=== PATIENT | female | born 1990 | race African-American/Black ===

== ENCOUNTER 2017-02-24 18:09 | Emergency (ER) | payer SELFPAY ==
[2017-02-24] MEDS ORDERED: Dexamethasone 4 MG TAB ONE (18:32)
[2017-02-24] MEDS ORDERED: Dexamethasone 10 MG/ML VIAL ONE (18:36)
== END 2017-02-24 18:46 | disposition home or self-care (01) ==
LOC: ERS 18:09
DX: J34.89 Other specified disorders of nose and nasal sinuses (principal); Z79.899 Other long term (current) drug therapy
CPT/HCPCS: 99283; J1100; J8540

== ENCOUNTER 2017-03-12 12:20 | Emergency (ER) | payer SELFPAY ==
[2017-03-12 13:00] LABS: #Basophils 0.1 thou/uL (0.0-0.2); #Eosinphils 0.4 thou/uL (0.0-0.7); #Lymphocytes 2.2 thou/uL (1.20-3.40); #Monocytes 0.3 thou/uL (0.11-0.59); %Basophils 1.6 % (0.0-1.0); %Eosinophils 6.8 % (0.0-10.0); %Lymphocytes 35.8 % (21.0-51.0); %Monocytes 5.6 % (0.0-10.0); Hematocrit 40.9 % (36.0-47.0); Mean Platelet Volume 6.5 fL (7.4-10.4); Red Blood Cell (RBC) Count 4.83 mill/uL (4.20-5.40); White Blood Cell (WBC) Count 6.1 thou/uL (4.8-10.8)
[2017-03-12 13:21] LABS: ALT (SGPT) 12 U/L (8-55); AST (SGOT) 14 U/L (5-34); Alkaline Phosphatase 114 U/L (40-150); Anion Gap 14 mmol/L (10-20); BUN (Urea Nitrogen) 9 mg/dL (7.0-18.7); Bilirubin, Total 0.4 mg/dL (0.2-1.2); Calc. Creatinine Clearance 0 mL/min (70-130); Calcium 9.5 mg/dL (7.8-10.44); Carbon Dioxide 23 mmol/L (22-29); Chloride 103 mmol/L (98-107); Estimated GFR-MDRD Greater than 90; Globulin 3.9 g/dL (2.4-3.5)
== END 2017-03-12 15:16 | disposition left against medical advice (07) ==
LOC: ERS 12:20
DX: Z53.21 Procedure and treatment not carried out due to patient leaving prior to being seen by health care provider (principal)
CPT/HCPCS: 36415; 80053; 85025

== ENCOUNTER 2017-03-12 15:52 | Emergency (ER) | payer SELFPAY ==
[2017-03-12] MEDS ORDERED: Acetaminophen 500 MG TAB ONE (16:32)
[2017-03-12] MEDS ORDERED: Metoclopramide HCl 10 MG/2 ML VIAL ONE (17:00)
--- NOTE | 2017-03-12 17:04 | CT ---
CT BRAIN: Date: 03/12/17 HISTORY: Mass FINDINGS: No acute intracranial infarct or hemorrhage. No midline shift or mass effect. Ventricular size and extra-axial CSF spaces are normal. The mastoids are clear. Mild mucosal thickening of the e thmoids. IMPRESSION: No intracranial mass. MRI with contrast has greater sensitivity. POS: [facility]
== END 2017-03-12 18:21 | disposition home or self-care (01) ==
LOC: ERS 15:52
DX: R51 Headache (principal)
CPT/HCPCS: 70450; 96361; 96365; 96368; J2765; J3475; J7050

== ENCOUNTER 2017-06-18 00:27 | Emergency (ER) | payer OTHER, SELFPAY ==
[2017-06-18 01:03] LABS: #Basophils 0.1 thou/uL (0.0-0.2); #Eosinphils 0.4 thou/uL (0.0-0.7); #Lymphocytes 3.6 thou/uL (1.20-3.40); #Monocytes 0.5 thou/uL (0.11-0.59); #Neutrophils 6.8 thou/uL (1.40-6.50); %Basophils 0.5 % (0.0-1.0); %Eosinophils 3.5 % (0.0-10.0); %Lymphocytes 31.5 % (21.0-51.0); %Monocytes 4.5 % (0.0-10.0); Hemoglobin 11.7 g/dL (12.0-16.0); Mean Corpuscular HGB CONC 33.8 g/dL (32.0-36.0); Mean Corpuscular Volume 82.9 fl (81.0-99.0); Mean Platelet Volume 6.6 fL (7.4-10.4); Platelet Count 343 thou/uL (130-400); RBC Distribution Width 12.7 % (11.5-14.5); Red Blood Cell (RBC) Count 4.18 mill/uL (4.20-5.40); White Blood Cell (WBC) Count 11.3 thou/uL (4.8-10.8)
[2017-06-18 01:23] LABS: ALT (SGPT) 12 U/L (8-55); AST (SGOT) 10 U/L (5-34); Albumin 3.5 g/dL (3.5-5.0); Alkaline Phosphatase 108 U/L (40-150); Anion Gap 12 mmol/L (10-20); BUN (Urea Nitrogen) 7 mg/dL (7.0-18.7); Bilirubin, Total 0.2 mg/dL (0.2-1.2); Calc. Creatinine Clearance 0 mL/min (70-130); Calcium 9.6 mg/dL (7.8-10.44); Carbon Dioxide 23 mmol/L (22-29); Chloride 106 mmol/L (98-107); Estimated GFR-MDRD Greater than 90; Globulin 3.5 g/dL (2.4-3.5); Glucose 142 mg/dL (70-105); Potassium 3.8 mmol/L (3.5-5.1); Sodium 137 mmol/L (136-145)
[2017-06-18 01:26] LABS: CKMB 0.4 ng/mL (0-6.6); Troponin I Less than 0.010 ng/mL (< 0.028)
[2017-06-18] MEDS ORDERED: Mag-Al 1200 mg/1200 mg/30 ML UDCUP ONE (01:40)
[2017-06-18] MEDS ORDERED: Lidocaine Viscous Sol 2% 15 ml UD Cup ONE (01:40)
== END 2017-06-18 02:38 | disposition home or self-care (01) ==
LOC: ERS 00:27
DX: O99.89 Other specified diseases and conditions complicating pregnancy, childbirth and the puerperium (principal); R07.89 Other chest pain; Z3A.17 17 weeks gestation of pregnancy
CPT/HCPCS: 36415; 80053; 82553; 84484; 85025; 85379; 93005

== ENCOUNTER 2017-07-05 23:26 | Day surgery (SDC) | payer OTHER ==
[2017-07-06 00:22] VITALS: BP 114/69; TEMP 98.9; BMI 33.5
--- NOTE | 2017-07-06 07:39 | PRG ---
DATE OF SERVICE: 07/06/2017 OB ED NOTE TIME OF SERVICE: 0045 hours. HISTORY OF PRESENT ILLNESS: Patient is a 27-year-old 4, para 3 at 19 weeks' gestation, who s ees Dr. Sebastian Guevara at [facility]. She reports lower abdominal pressure and pain extending i nto the vagina since approximately 4 o'clock this evening. She denies vaginal discharge. She denies bleeding. She denies contractions. She denies rupture of membranes. OB AND TAR CHASER HISTORY: Patient reports term pregnancies x3 with vaginal deliveries, uncomplicated. Ant epartum record not available. No history of labor, cervical incontinence, or cervical surger y. PAST MEDICAL HISTORY: None. PAST SURGICAL HISTORY: None. ALLERGIES: PEACHES and CRAB LEGS. MEDICATIONS: vitamins. SOCIAL HISTORY: Denies tobacco, alcohol, or IV drug abuse. FAMILY HISTORY AND REVIEW OF SYSTEMS: Noncontributory. PHYSICAL EXAMINATION: GENERAL: Black female in no acute distress. VITAL SIGNS: Blood pressure 116/74, afebrile, respirations 18, pulse 85. ABDOMEN: Soft and nontender. No rebound or guarding, no CVA tenderness. PELVIC: Vulva without lesions. Vagina, slight leukorrhea of . No dominant discharge noted . Cervix is visually closed on speculum exam. Bimanual exam reveals a posterior cervix with a rathe r low-riding uterus, but a cervix that is closed, long, and high. EXTREMITIES: Without clubbing, cyanosis, or edema. IMPRESSION: Discomforts of . Pelvic pressure likely secondary to multi-gravid state and fa irly recent interval of . PLAN: Patient reassured, instructed to come back if pressure increases, vaginal discharge increases, bleeding occurs, or ruptured membranes occurs. Otherwise, she is to keep her scheduled followup wit janine Guevara in 5 days.
== END 2017-07-06 00:59 | disposition home or self-care (01) ==
LOC: L&D/OP 23:26
PROVIDERS: ATTEND Family Medicine
DX: O99.89 Other specified diseases and conditions complicating pregnancy, childbirth and the puerperium (principal); R10.30 Lower abdominal pain, unspecified; R10.2 Pelvic and perineal pain; Z79.899 Other long term (current) drug therapy; Z91.018 Allergy to other foods; Z3A.19 19 weeks gestation of pregnancy

== ENCOUNTER 2017-09-18 23:37 | Day surgery (SDC) | payer OTHER ==
[2017-09-19 00:30] VITALS: TEMP 98.3; BMI 33.6
[2017-09-19] MEDS ORDERED: Promethazine HCl 25 MG/ML VIAL IM/IV PRN ×2 (00:48→00:55)
--- NOTE | 2017-09-19 00:50 | PDOC.LDHP ---
Labor and Delivery H&P HPI: Patient of Dr Guevara Location: L&D CC: irregular contractions since Saturday Patient is a 27 yo at 30 weeks (no HX PTL) with irregular contractions for [address] guevara who recommended oral hydration. No LOF, no VB, no PIS sxs, no trauma, no sex since last Saturday. ROS positive for "allergies" and nasal congestion. Review of Systems: Complete ROS completed and as per HPI Current gestational age (weeks): 30 Dating criteria: last menstrual period Grav: 4 Para: 3 (Term deliveries) Current complications: none Abnormal US findings: No Current medications: pre- vitamins Previous surgical history: none Allergies/Adverse Reactions: Allergies Allergy/AdvReac Type Severity Reaction Status Date / Time No Known Drug Allergies Allergy Verified 07/06/17 00:12 Social history: none - Physical Exam Vital signs reviewed and normal: yes (113/67 afebrile 92 O2 sat 96) General: NAD Heart: RRR Lungs: CTAB Abdomen: gravid FHT: category 1 [place] contractions every: irregular Q 3-5 - Assessment Threatened labor - Plan -: Observation in L&D for now. We will collect FFN, then check her cervix IVF hydrate and sedate prn Await FFN eval Cervical length is needed to complete eval
[2017-09-19] MEDS ORDERED: Lactated Ringer's 1,000 ML IV SCH (01:00)
[2017-09-19 01:40] LABS: FFN Internal QC Analyzer PASS (PASS); FFN Internal QC Cassette PASS (PASS); Fetal Fibronectin Negative (Negative)
--- NOTE | 2017-09-19 01:52 | PDOC.EVN ---
Event Note - Event Note Event Note: Follow up: Cervix closed and FFN negative Vitals stable Cat 1 FHTs OK for outpatient follow up after this IVF
== END 2017-09-19 02:12 | disposition home or self-care (01) ==
LOC: L&D/OP 23:37
PROVIDERS: ATTEND Family Medicine
DX: O47.03 False labor before 37 completed weeks of gestation, third trimester (principal); Z3A.30 30 weeks gestation of pregnancy; Z79.899 Other long term (current) drug therapy
CPT/HCPCS: 59025; 82731; 96360; 96375; 99283; J0595; J2550

== ENCOUNTER 2019-01-16 08:11 | Emergency (ER) | payer OTHER ==
[2019-01-16 08:32] LABS: #Basophils 0.1 thou/uL (0.0-0.2); #Eosinphils 0.3 thou/uL (0.0-0.7); #Lymphocytes 3.7 thou/uL (1.20-3.40); #Monocytes 0.3 thou/uL (0.11-0.59); %Basophils 0.8 % (0.0-1.0); %Eosinophils 4.1 % (0.0-10.0); %Lymphocytes 44.2 % (21.0-51.0); %Monocytes 3.2 % (0.0-10.0); %Neutrophils 47.7 % (42.0-75.0); Hemoglobin 12.8 g/dL (12.0-16.0); Mean Corpuscular HGB CONC 32.6 g/dL (32.0-36.0); Mean Corpuscular Hemoglobin 26.5 pg (27.0-31.0); Mean Corpuscular Volume 81.4 fL (78.0-98.0); Mean Platelet Volume 6.8 fL (7.4-10.4); Platelet Count 435 thou/uL (130-400); RBC Distribution Width 11.8 % (11.5-14.5); Red Blood Cell (RBC) Count 4.82 mill/uL (4.20-5.40); White Blood Cell (WBC) Count 8.3 thou/uL (4.8-10.8)
[2019-01-16 08:42] LABS: Bilirubin Negative (Negative); Blood, Urine 1+ (Negative); Glucose, Urine (Dipstick) Normal (Negative); Leukocyte 250 Leu/uL (Negative); Nitrite Negative (Negative); Pregnancy Test - Urine (BHCG) Negative (Negative); Pregu Control Background? CLEAR/WHITE (CLR/WHITE); Pregu Control Bar Appear? YES (CONTROL BAR); Protein, Urine (Dipstick) 30 mg/dL (Neg-Trace); Specific Gravity 1.029 (1.002-1.036); Urobilinogen Normal mg/dL (Less than 2)
[2019-01-16 08:47] LABS: Bacteria/HPF 1+ HPF (None Seen); Clarity Cloudy (Clear); Unclassified Crystals Rare HPF (None Seen)
[2019-01-16 08:49] LABS: RBC/HPF 0-3 HPF (0-3); WBC/HPF 21-50 HPF (0-3)
[2019-01-16 08:53] LABS: ALT (SGPT) 12 U/L (8-55); AST (SGOT) 11 U/L (5-34); Alkaline Phosphatase 110 U/L (40-150); Anion Gap 10 mmol/L (10-20); BUN (Urea Nitrogen) 9 mg/dL (7.0-18.7); Bilirubin, Total 0.4 mg/dL (0.2-1.2); Calc. Creatinine Clearance 0 mL/min (70-130); Calcium 9.2 mg/dL (7.8-10.44); Carbon Dioxide 28 mmol/L (22-29); Chloride 104 mmol/L (98-107); Estimated GFR-MDRD Greater than 90; Globulin 3.5 g/dL (2.4-3.5); Glucose 95 mg/dL (70-105); Lipase 6 U/L (8-78); Potassium 3.7 mmol/L (3.5-5.1); Protein, Total 7.5 g/dL (6.0-8.3); Sodium 138 mmol/L (136-145)
[2019-01-16] MEDS ORDERED: Ketorolac Tromethamine 30 MG/ML VIAL ONE (09:56)
== END 2019-01-16 10:09 | disposition home or self-care (01) ==
LOC: ERS 08:11
DX: N39.0 Urinary tract infection, site not specified (principal); F41.9 Anxiety disorder, unspecified
CPT/HCPCS: 36415; 80053; 81003; 81015; 81025; 83690; 85025; 96372; 99284; J1885

== ENCOUNTER 2019-07-19 22:05 | Emergency (ER) | payer MEDICAID, OTHER ==
[2019-07-19] MEDS ORDERED: Acetaminophen 500 MG TAB ONE (23:11)
--- NOTE | 2019-07-20 08:08 | ULT ---
TRANSABDOMINAL AND TRANSVAGINAL PELVIC ULTRASOUND: INDICATION: Cramping at 78-week . TECHNIQUE: Dubois scale, color Doppler, and spectral Doppler images were obtained of the pelvis via transabdominal and transvaginal approach. FINDINGS: There is an intrauterine gestational sac identified with a mean sac diameter of 2.41 cm giving an est imated gestational age of 7 weeks and 3 days. No internal yolk sac or pole is identified. The gestational sac has an oblong irregular appearance. The right ovary measures 3.2 x 1.6 x 4 cm. The left ovary measures 4.6 x 2.2 x 1.4 cm. There is a s imple follicular cyst within the left ovary. The uterus measures 10.6 x 6.2 x 7.4 cm. There is a sc ar present within the anterior uterus related to . Mild free fluid in the pelvis. IMPRESSION: 1. Intrauterine gestational sac with irregular sac margin is suspicious for anembryonic . No internal pole or yolk sac is identified. Gestational age based on mean sac diameter is 7 we eks and 3 days with an estimated due date of 03/03/2020. Continued clinical and sonographic followup is recommended. 2. Simple left ovarian cyst. 3. scar of the uterus. 4. Mild free fluid in the pelvis. POS: [facility]
== END 2019-07-20 00:38 | disposition home or self-care (01) ==
LOC: ERS 22:05
DX: O02.0 Blighted ovum and nonhydatidiform mole (principal); F41.9 Anxiety disorder, unspecified; O99.341 Other mental disorders complicating pregnancy, first trimester; Z79.899 Other long term (current) drug therapy; Z3A.01 Less than 8 weeks gestation of pregnancy
CPT/HCPCS: 36415; 76856; 84702

== ENCOUNTER 2019-08-06 15:41 | Outpatient (CLI) | payer OTHER ==
--- NOTE | 2019-08-06 16:43 | ULT ---
Obstetric sonogram transabdominal and transvaginal imaging with duplex evaluation HISTORY: Absent heart tones. FINDINGS: Urinary bladder is unremarkable. Gestational sac within the endometrial cavity with irregul ar linear internal echogenic structure. No heart tones visualized. Measured as a pole, it correlates with 7 weeks 3 days gestational age. No free fluid is evident within the pelvis. Each ovary contains follicles and demonstrates good color and spectral Doppler flow. IMPRESSION : Evidence of nonviable gestation, as no heart tones are visible and there has been no growth sin ce the sonogram from 07/19/2019.
== END 2019-08-06 15:42 | disposition home or self-care (01) ==
LOC: SCSULT 15:41
PROVIDERS: ATTEND Nurse Practitioner
DX: O09.91 Supervision of high risk pregnancy, unspecified, first trimester (principal); O02.0 Blighted ovum and nonhydatidiform mole; Z3A.01 Less than 8 weeks gestation of pregnancy
CPT/HCPCS: 76856

== ENCOUNTER 2019-08-11 15:12 | Emergency (ER) | payer OTHER ==
[~2019-08-11 15:12] MED LIST: Iopamidol-370 76% 500 ML 1 ML ONE
[2019-08-11 16:32] LABS: #Basophils 0.1 thou/uL (0.0-0.2); #Eosinphils 0.4 thou/uL (0.0-0.7); #Lymphocytes 3.1 thou/uL (1.20-3.40); #Monocytes 0.3 thou/uL (0.11-0.59); #Neutrophils 3.1 thou/uL (1.40-6.50); %Basophils 1.2 % (0.0-1.0); %Eosinophils 5.6 % (0.0-10.0); %Lymphocytes 44.8 % (21.0-51.0); %Monocytes 3.6 % (0.0-10.0); %Neutrophils 44.7 % (42.0-75.0); Hemoglobin 11.2 g/dL (12.0-16.0); Mean Corpuscular HGB CONC 32.8 g/dL (32.0-36.0); Mean Corpuscular Hemoglobin 27.2 pg (27.0-31.0); Mean Corpuscular Volume 83.1 fL (78.0-98.0); Mean Platelet Volume 8.1 fL (7.4-10.4); Platelet Count 346 thou/uL (130-400); RBC Distribution Width 11.9 % (11.5-14.5); Red Blood Cell (RBC) Count 4.11 mill/uL (4.20-5.40); White Blood Cell (WBC) Count 6.9 thou/uL (4.8-10.8)
[2019-08-11 16:43] LABS: ALT (SGPT) 14 U/L (8-55); AST (SGOT) 15 U/L (5-34); Albumin 3.9 g/dL (3.5-5.0); Alkaline Phosphatase 98 U/L (40-110); Anion Gap 13 mmol/L (10-20); BUN (Urea Nitrogen) 7 mg/dL (7.0-18.7); Bilirubin, Total 0.2 mg/dL (0.2-1.2); Calc. Creatinine Clearance 0 mL/min (70-130); Calcium 9.1 mg/dL (7.8-10.44); Carbon Dioxide 23 mmol/L (22-29); Chloride 106 mmol/L (98-107); Estimated GFR-MDRD Greater than 90; Globulin 3.2 g/dL (2.4-3.5); Glucose 83 mg/dL (70-105); Lipase 12 U/L (8-78); Potassium 4.4 mmol/L (3.5-5.1); Protein, Total 7.1 g/dL (6.0-8.3); Sodium 138 mmol/L (136-145)
--- NOTE | 2019-08-11 17:50 | CT ---
CT OF THE ABDOMEN AND PELVIS WITH CONTRAST: 08/11/19 COMPARISON: None. HISTORY: Lower abdominal pain that began this morning. History of section in November. TECHNIQUE: Multiple contiguous axial images were obtained in a CT of the abdomen and pelvis with contrast. Sagit milo and coronal reformats were performed. FINDINGS: The liver, gallbladder, kidneys, adrenal glands, spleen, and pancreas are unremarkable. No free air, free fluid, or stranding changes are seen in the abdomen or pelvis. The reproductive organs are unremarkable. The large and small bowel are unremarkable. The appendix is normal. No abdominal or pelvic lymphadenopathy is seen. The osseous structures, visualized inferior thorax, and abdominal wall soft tissues are unremarkable. IMPRESSION: No evidence of acute intra-abdominal/pelvic abnormality. POS: [facility]
== END 2019-08-11 18:40 | disposition home or self-care (01) ==
LOC: ERS 15:12
DX: O99.611 Diseases of the digestive system complicating pregnancy, first trimester (principal); K59.00 Constipation, unspecified; O99.341 Other mental disorders complicating pregnancy, first trimester; F41.9 Anxiety disorder, unspecified; Z79.899 Other long term (current) drug therapy
CPT/HCPCS: 74177; 80053; 83690; 84702; 85025; 96360; 96361; Q9967

== ENCOUNTER 2019-11-13 22:42 | Emergency (ER) | payer OTHER ==
[2019-11-14] MEDS ORDERED: diphenhydrAMINE 50 MG/ML VIAL ONE (00:31)
[2019-11-14] MEDS ORDERED: Promethazine HCl 25 MG/ML VIAL ONE (00:31)
[2019-11-14] MEDS ORDERED: Ketorolac Tromethamine 30 MG/ML VIAL ONE (01:52)
== END 2019-11-14 02:34 | disposition home or self-care (01) ==
LOC: ERS 22:42
DX: R51 Headache (principal); R42 Dizziness and giddiness; F41.9 Anxiety disorder, unspecified; Z79.899 Other long term (current) drug therapy
CPT/HCPCS: 96365; 96375; J1200; J1885; J2550

== ENCOUNTER 2020-01-07 22:05 | Emergency (ER) | payer OTHER ==
[2020-01-07 22:44] LABS: #Basophils 0.1 thou/uL (0.0-0.2); #Eosinphils 0.2 thou/uL (0.0-0.7); #Lymphocytes 3.3 thou/uL (1.20-3.40); #Monocytes 0.3 thou/uL (0.11-0.59); #Neutrophils 6.3 thou/uL (1.40-6.50); %Basophils 0.6 % (0.0-1.0); %Lymphocytes 32.7 % (21.0-51.0); %Monocytes 3.1 % (0.0-10.0); %Neutrophils 61.6 % (42.0-75.0); Hemoglobin 11.6 g/dL (12.0-16.0); Mean Corpuscular HGB CONC 32.5 g/dL (32.0-36.0); Mean Corpuscular Hemoglobin 25.8 pg (27.0-31.0); Mean Corpuscular Volume 79.4 fL (78.0-98.0); Platelet Count 446 thou/uL (130-400); RBC Distribution Width 13.7 % (11.5-14.5); Red Blood Cell (RBC) Count 4.52 mill/uL (4.20-5.40); White Blood Cell (WBC) Count 10.2 thou/uL (4.8-10.8)
[2020-01-07 22:50] LABS: Bacteria/HPF 3+ HPF (None Seen); Bilirubin Negative (Negative); Blood, Urine Trace (Negative); Clarity Clear (Clear); Glucose, Urine (Dipstick) Normal (Negative); Ketone, Urine Negative (Negative); Leukocyte 25 Leu/uL (Negative); Nitrite Negative (Negative); Protein, Urine (Dipstick) Negative (Neg-Trace); RBC/HPF 0-3 HPF (0-3); Specific Gravity, Urine 1.014 (1.002-1.036); Squamous Epithelial 0-3 HPF (0-3); Urobilinogen Normal mg/dL (Less than 2); WBC/HPF 0-3 HPF (0-3)
[2020-01-07 23:05] LABS: ALT (SGPT) 18 U/L (8-55); AST (SGOT) 14 U/L (5-34); Albumin 4.1 g/dL (3.5-5.0); Alkaline Phosphatase 113 U/L (40-110); Anion Gap 9 mmol/L (10-20); BUN (Urea Nitrogen) 11 mg/dL (7.0-18.7); Bilirubin, Total 0.2 mg/dL (0.2-1.2); Calc. Creatinine Clearance 0 mL/min (70-130); Calcium 9.3 mg/dL (7.8-10.44); Carbon Dioxide 28 mmol/L (22-29); Chloride 103 mmol/L (98-107); Estimated GFR-MDRD Greater than 90; Globulin 3.6 g/dL (2.4-3.5); Glucose 87 mg/dL (70-105); Potassium 3.5 mmol/L (3.5-5.1); Protein, Total 7.7 g/dL (6.0-8.3); Sodium 136 mmol/L (136-145)
--- NOTE | 2020-01-07 23:44 | ULT ---
EXAM: Pelvic ultrasound HISTORY: Pelvic pain in a female COMPARISON: None TECHNIQUE: Multiple grayscale and color Doppler images were obtained in a pelvic ultrasound. Spectral analysis of the Doppler waveforms of the ovaries were performed. FINDINGS: UTERUS: There is an intrauterine gestational sac. This contains a yolk sac. No pole is seen at this time. Mean sac diameter is 0.73 cm which estimates gestational age at 5 weeks 4 days. No evidence of subchorionic hemorrhage. No free fluid is seen in the pelvis. RIGHT OVARY: Normal flow without focal mass. A corpus luteum cyst is seen in the right ovary. LEFT OVARY: Normal flow without focal mass. IMPRESSION: Early intrauterine .
== END 2020-01-07 23:20 | disposition home or self-care (01) ==
LOC: ERS 22:05
DX: O23.41 Unspecified infection of urinary tract in pregnancy, first trimester (principal); B96.89 Other specified bacterial agents as the cause of diseases classified elsewhere; O99.341 Other mental disorders complicating pregnancy, first trimester; F41.9 Anxiety disorder, unspecified; Z3A.01 Less than 8 weeks gestation of pregnancy
CPT/HCPCS: 36415; 76856; 80053; 81003; 81015; 84702; 85025; 86900; 86901

== ENCOUNTER 2020-02-09 20:00 | Emergency (ER) | payer OTHER ==
[2020-02-09] MEDS ORDERED: Ondansetron PF 4 MG/2 ML Vial ONE (21:11)
[2020-02-09 21:15] LABS: #Basophils 0.1 thou/uL (0.0-0.2); #Eosinphils 0.3 thou/uL (0.0-0.7); #Lymphocytes 2.8 thou/uL (1.20-3.40); #Monocytes 0.4 thou/uL (0.11-0.59); %Basophils 0.8 % (0.0-1.0); %Eosinophils 2.3 % (0.0-10.0); %Monocytes 3.7 % (0.0-10.0); %Neutrophils 69.3 % (42.0-75.0); Hemoglobin 11.7 g/dL (12.0-16.0); Mean Corpuscular HGB CONC 33.3 g/dL (32.0-36.0); Mean Corpuscular Hemoglobin 26.5 pg (27.0-31.0); Mean Corpuscular Volume 79.8 fL (78.0-98.0); Mean Platelet Volume 7.4 fL (7.4-10.4); Platelet Count 384 thou/uL (130-400); RBC Distribution Width 14.1 % (11.5-14.5); Red Blood Cell (RBC) Count 4.39 mill/uL (4.20-5.40); White Blood Cell (WBC) Count 11.6 thou/uL (4.8-10.8)
[2020-02-09 21:16] LABS: Bilirubin Negative (Negative); Blood, Urine 1+ (Negative); Clarity Clear (Clear); Glucose, Urine (Dipstick) 70 mg/dL (Negative); Ketone, Urine 40 mg/dL (Negative); Leukocyte Negative Leu/uL (Negative); Nitrite Negative (Negative); Protein, Urine (Dipstick) 20 mg/dL (Neg-Trace); RBC/HPF 0-3 HPF (0-3); Specific Gravity, Urine 1.028 (1.002-1.036); Squamous Epithelial 0-3 HPF (0-3); WBC/HPF 0-3 HPF (0-3)
[2020-02-09 21:17] LABS: Bacteria/HPF 1+ HPF (None Seen)
[2020-02-09 21:45] LABS: ALT (SGPT) 11 U/L (8-55); AST (SGOT) 12 U/L (5-34); Albumin 3.8 g/dL (3.5-5.0); Alkaline Phosphatase 101 U/L (40-110); Anion Gap 12 mmol/L (10-20); BUN (Urea Nitrogen) 7 mg/dL (7.0-18.7); Bilirubin, Total 0.2 mg/dL (0.2-1.2); Calc. Creatinine Clearance 0 mL/min (70-130); Calcium 8.9 mg/dL (7.8-10.44); Carbon Dioxide 22 mmol/L (22-29); Chloride 105 mmol/L (98-107); Estimated GFR-MDRD Greater than 90; Globulin 3.6 g/dL (2.4-3.5); Glucose 115 mg/dL (70-105); Lipase 11 U/L (8-78); Potassium 3.6 mmol/L (3.5-5.1); Protein, Total 7.4 g/dL (6.0-8.3); Sodium 135 mmol/L (136-145)
== END 2020-02-09 22:10 | disposition home or self-care (01) ==
LOC: ERS 20:00
DX: O21.0 Mild hyperemesis gravidarum (principal); O99.89 Other specified diseases and conditions complicating pregnancy, childbirth and the puerperium; R10.30 Lower abdominal pain, unspecified; O99.341 Other mental disorders complicating pregnancy, first trimester; F41.9 Anxiety disorder, unspecified; Z3A.09 9 weeks gestation of pregnancy
CPT/HCPCS: 80053; 81003; 81015; 83690; 85025; 87086; 96361; 96374; J2405

== ENCOUNTER 2020-03-11 16:52 | Emergency (ER) | payer OTHER ==
[2020-03-11 17:45] LABS: Bacteria/HPF 2+ HPF (None Seen); Bilirubin Negative (Negative); Blood, Urine 2+ (Negative); Clarity Clear (Clear); Glucose, Urine (Dipstick) 100 mg/dL (Negative); Ketone, Urine Negative (Negative); Leukocyte Negative Leu/uL (Negative); Mucous/LPF 1+ LPF (<2+); Nitrite Negative (Negative); Protein, Urine (Dipstick) 30 mg/dL (Neg-Trace); RBC/HPF 0-3 HPF (0-3); Specific Gravity, Urine 1.025 (1.002-1.036); Urobilinogen Normal mg/dL (Less than 2)
[2020-03-11 17:50] LABS: #Basophils 0.1 thou/uL (0.0-0.2); #Eosinphils 0.4 thou/uL (0.0-0.7); #Lymphocytes 2.5 thou/uL (1.20-3.40); #Monocytes 0.5 thou/uL (0.11-0.59); #Neutrophils 9.1 thou/uL (1.40-6.50); %Basophils 0.6 % (0.0-1.0); %Eosinophils 2.9 % (0.0-10.0); %Lymphocytes 20.1 % (21.0-51.0); %Monocytes 3.7 % (0.0-10.0); %Neutrophils 72.7 % (42.0-75.0); Mean Corpuscular HGB CONC 34.7 g/dL (32.0-36.0); Mean Corpuscular Hemoglobin 27.9 pg (27.0-31.0); Mean Corpuscular Volume 80.4 fL (78.0-98.0); Mean Platelet Volume 6.8 fL (7.4-10.4); Platelet Count 350 thou/uL (130-400); RBC Distribution Width 13.9 % (11.5-14.5); White Blood Cell (WBC) Count 12.5 thou/uL (4.8-10.8)
[2020-03-11 17:59] LABS: Pregnancy Test - Urine (BHCG) POSITIVE (Negative); Pregu Control Background? CLEAR/WHITE (CLR/WHITE); Pregu Control Bar Appear? YES (CONTROL BAR); Specific Gravity 1.025 (1.002-1.036)
[2020-03-11 18:11] LABS: ALT (SGPT) 8 U/L (8-55); AST (SGOT) 9 U/L (5-34); Albumin 3.5 g/dL (3.5-5.0); Alkaline Phosphatase 88 U/L (40-110); Anion Gap 12 mmol/L (10-20); BUN (Urea Nitrogen) 8 mg/dL (7.0-18.7); Bilirubin, Total Less than 0.2 mg/dL (0.2-1.2); Calc. Creatinine Clearance 0 mL/min (70-130); Calcium 9.2 mg/dL (7.8-10.44); Carbon Dioxide 20 mmol/L (22-29); Chloride 105 mmol/L (98-107); Estimated GFR-MDRD Greater than 90; Globulin 3.6 g/dL (2.4-3.5); Glucose 116 mg/dL (70-105); Potassium 3.7 mmol/L (3.5-5.1); Protein, Total 7.1 g/dL (6.0-8.3); Sodium 133 mmol/L (136-145)
== END 2020-03-11 18:23 | disposition home or self-care (01) ==
LOC: ERS 16:52
DX: O20.0 Threatened abortion (principal); O23.42 Unspecified infection of urinary tract in pregnancy, second trimester; O99.342 Other mental disorders complicating pregnancy, second trimester; F41.9 Anxiety disorder, unspecified; Z3A.14 14 weeks gestation of pregnancy
CPT/HCPCS: 36415; 80053; 81003; 81015; 81025; 84702; 85025; 86900; 86901

== ENCOUNTER 2020-04-17 14:59 | Emergency (ER) | payer OTHER ==
[2020-04-17 17:25] LABS: Bacteria/HPF 3+ HPF (None Seen); Bilirubin Negative (Negative); Blood, Urine Negative (Negative); Clarity Clear (Clear); Glucose, Urine (Dipstick) 200 mg/dL (Negative); Ketone, Urine 10 mg/dL (Negative); Leukocyte 25 Leu/uL (Negative); Nitrite Negative (Negative); Protein, Urine (Dipstick) 30 mg/dL (Neg-Trace); RBC/HPF 0-3 HPF (0-3); Specific Gravity, Urine 1.025 (1.002-1.036); Squamous Epithelial 0-3 HPF (0-3); Urobilinogen Normal mg/dL (Less than 2); WBC/HPF 0-3 HPF (0-3); pH, Urine 5.5 (5.0-9.0)
--- NOTE | 2020-04-17 17:33 | ULT ---
Exam: OB ultrasound Limited: HISTORY: Contractions at approximately 19 weeks FINDINGS: The cervix measures approximately 3.5 cm and is closed. heart rate 158 bpm. Right-sided placenta without overt placenta previa. Variable presentation including vertex. Adequate amniotic fluid. Very limited anatomy. biometry: BPD 4.9 cm--20 weeks 6 days Head circumference 17.2 cm--19 weeks 6 days Abdominal circumference 14.6 cm--19 weeks 6 days Femur length 3.2 cm--19 weeks 6 days. IMPRESSION: Single viable intrauterine fetus at 19 weeks 6 days EDC 09/05/2020 Estimated weight 320 g. IMPRESSION: No significant acute process. Cervix measures 3.5 cm and is closed.
== END 2020-04-17 18:03 | disposition home or self-care (01) ==
LOC: ERS 14:59
DX: O23.42 Unspecified infection of urinary tract in pregnancy, second trimester (principal); Z3A.19 19 weeks gestation of pregnancy
CPT/HCPCS: 76815; 81003; 81015; 87086

== ENCOUNTER 2020-04-28 08:29 | Outpatient (CLI) | payer OTHER ==
--- NOTE | 2020-04-28 09:48 | ULT ---
OB ULTRASOUND: HISTORY: anatomy. FINDINGS: A single live intrauterine gestation is seen with measurements corresponding to an estimated gestatio nal age of 22 weeks 2 days and NANI at 08/30/2020. The estimated weight measures 490 gm or 1 rangel nd and 1 ounce (96% by Hadlock criteria). Biometry: BPD 5.25 cm, 22 weeks 0 days HC 19.58 cm, 21 weeks 6 days AC 17.58 cm, 22 weeks 4 days FL 3.80 cm, 22 weeks 2 days heart rate measures 153 b.p.m. GEORGE measures 16.9 cm. Placenta is posteriorly located without evidence of placenta previa. Cervical length measures 4.1 cm. A 3-vessel cord, cord insertion, kidneys, bladder, stomach, 4-chamber heart, lateral ventricles , cerebellum, spine, lips/nose, upper and lower extremities are visualized. No definite anomal ies are seen. IMPRESSION: Single live intrauterine of 22 weeks 2 days estimated gestational age and estimated date of delivery at 08/30/2020. POS: [facility]
== END 2020-04-28 08:30 | disposition home or self-care (01) ==
LOC: BICULT 08:29
PROVIDERS: ATTEND Family Medicine
DX: O09.892 Supervision of other high risk pregnancies, second trimester (principal); Z3A.22 22 weeks gestation of pregnancy
CPT/HCPCS: 76805

== ENCOUNTER 2020-06-13 06:11 | Day surgery (SDC) | payer OTHER ==
[2020-06-13 07:18] VITALS: BMI 37.0
[2020-06-13] MEDS ORDERED: hydrALAZINE 20 MG/ML VIAL SLOW IVP PRN (07:56)
[2020-06-13 08:25] LABS: Bacteria/HPF 2+ HPF (None Seen); Bilirubin Negative (Negative); Blood, Urine Trace (Negative); Calcium Oxalate Crystals 1+ HPF (None Seen); Clarity Clear (Clear); Glucose, Urine (Dipstick) 70 mg/dL (Negative); Ketone, Urine 40 mg/dL (Negative); Leukocyte Negative Leu/uL (Negative); Nitrite Negative (Negative); Protein, Urine (Dipstick) 20 mg/dL (Neg-Trace); RBC/HPF 0-3 HPF (0-3); Specific Gravity, Urine 1.017 (1.002-1.036); Squamous Epithelial 0-3 HPF (0-3); WBC/HPF 0-3 HPF (0-3); pH, Urine 6.5 (5.0-9.0)
[2020-06-13 08:38] LABS: FFN Internal QC Analyzer PASS (PASS); FFN Internal QC Cassette PASS (PASS); Fetal Fibronectin Negative (Negative)
[2020-06-13] MEDS ORDERED: Lactated Ringer's 1,000 ML IV SCH ×2 (08:45)
[2020-06-13] MEDS ORDERED: Terbutaline Sulfate 1 MG/ML VIAL SC SCH (10:15)
[2020-06-13] MEDS ORDERED: Terbutaline Sulfate 1 MG/ML VIAL ONE (10:28)
[2020-06-13] MEDS ORDERED: Acetaminophen 500 MG TAB PO SCH (11:15)
== END 2020-06-13 12:15 | disposition home or self-care (01) ==
LOC: L&D/OP 06:11
PROVIDERS: ATTEND Family Medicine
DX: O47.02 False labor before 37 completed weeks of gestation, second trimester (principal); O34.219 Maternal care for unspecified type scar from previous cesarean delivery; Z3A.27 27 weeks gestation of pregnancy; Z79.899 Other long term (current) drug therapy; Z91.013 Allergy to seafood; Z91.018 Allergy to other foods
CPT/HCPCS: 76815; 76816; 81001; 82731; 87480; 87510; 87660; 96360; 96361; 96372; 99285; J3105

== ENCOUNTER 2020-09-02 18:01 | Emergency (ER) | payer OTHER ==
[2020-09-02] MEDS ORDERED: Meclizine HCl 25 MG TAB ONE (18:21)
== END 2020-09-02 19:28 | disposition home or self-care (01) ==
LOC: ERS 18:01
DX: R42 Dizziness and giddiness (principal)
CPT/HCPCS: 99283

== ENCOUNTER 2021-06-05 20:20 | Emergency (ER) | payer OTHER ==
[2021-06-05] MEDS ORDERED: Meclizine HCl 25 MG TAB ONE (20:58)
[2021-06-05] MEDS ORDERED: Acetaminophen 500 MG TAB ONE (21:10)
[2021-06-06 16:34] LABS: SARS-CoV-2 PCR by NAA DETECTED (NotDetected)
== END 2021-06-05 21:20 | disposition home or self-care (01) ==
LOC: ERS 20:20
DX: U07.1 COVID-19 (principal); R42 Dizziness and giddiness; H65.93 Unspecified nonsuppurative otitis media, bilateral
CPT/HCPCS: 87804; 99284; U0003; U0005